=== PATIENT | female | born 2000 | race American Indian/Alaskan Native ===

== ENCOUNTER 2020-08-03 19:35 | Emergency (ER) | payer BC, MEDICAID ==
[2020-08-03] MEDS ORDERED: Sodium Chloride 0.9% 10 ML Syringe FLUSH PRN (20:05)
[2020-08-03] MEDS ORDERED: Ondansetron 4 MG/2 ML SDV IVPUSH STA (20:07)
[2020-08-03] MEDS ORDERED: Sodium Chloride 0.9% 1,000 ML IV SCH (20:15)
--- NOTE | 2020-08-03 20:55 | EDM.PDOC ---
ED HPI GENERAL MEDICAL PROBLEM - General Chief Complaint: Gastrointestinal Problem Stated Complaint: cough, N/V/D Time Seen by Provider: 08/03/20 19:40 Source of Information: Reports: Patient History Limitations: Reports: No Limitations - History of Present Illness INITIAL COMMENTS - FREE TEXT/NARRATIVE: Patient presented to the ED because of 1 day history of non-productive cough, malaise, N/V/D. There is no fever but has chills. Denies any urinary symptoms. - Related Data Allergies Allergy/AdvReac Type Severity Reaction Status Date / Time No Known Allergies Allergy Verified 08/03/20 19:54 Past Medical History - Past Health History Medical/Surgical History: Denies Medical/Surgical History Psychiatric History: Reports: ADHD Social & Family History - Tobacco Use Tobacco Use Status *Q: Current Every Day Tobacco User Years of Tobacco use: 1 Packs/Tins Daily: 0.5 - Alcohol Use Days Per Week of Alcohol Use: 1 Number of Drinks Per Day: 6 Total Drinks Per Week: 6 - Recreational Drug Use Recreational Drug Use: Yes Drug Use in Last 12 Months: Yes Recreational Drug Type: Reports: Marijuana/Hashish Recreational Drug Use Frequency: Weekly ED ROS GENERAL - Review of Systems Review Of Systems: See Below Constitutional: Reports: No Symptoms HEENT: Reports: No Symptoms Respiratory: Reports: Cough Cardiovascular: Reports: No Symptoms Endocrine: Reports: No Symptoms GI/Abdominal: Reports: Diarrhea, Nausea, Vomiting : Reports: No Symptoms Musculoskeletal: Reports: No Symptoms Skin: Reports: No Symptoms Neurological: Reports: No Symptoms Psychiatric: Reports: No Symptoms ED EXAM, GI/ABD - Physical Exam Exam: See Below Exam Limited By: No Limitations General Appearance: Alert, No Apparent Distress Ears: Normal External Exam, Normal Canal, Hearing Grossly Normal Nose: Normal Inspection, Normal Mucosa, No Blood Throat/Mouth: Normal Inspection, Normal Lips, Normal Teeth, Normal Gums Head: Atraumatic, Normocephalic Neck: Normal Inspection, Supple, Non-Tender, Full Range of Motion Respiratory/Chest: No Respiratory Distress, Lungs Clear, Normal Breath Sounds, No Accessory Muscle Use Cardiovascular: Normal Peripheral Pulses, Regular Rate, Rhythm, No Edema, No Gallop, No JVD, No Murmur GI/Abdominal Exam: Normal Bowel Sounds, Soft, Non-Tender, No Organomegaly, No Distention, No Abnormal Bruit Back Exam: Normal Inspection, Full Range of Motion Extremities: Normal Inspection, Normal Range of Motion, Non-Tender, No Pedal Edema, Normal Capillary Refill Neurological: Alert, Oriented, CN II-XII Intact, Normal Cognition, Normal Gait, Normal Reflexes, No Motor/Sensory Deficits Course - Vital Signs Text/Narrative:: Labs/CXR result was discussed with patient Last Recorded V/S: Last Vital Signs Temp 36.9 C 08/03/20 19:35 Pulse 123 H 08/03/20 19:35 Resp 16 08/03/20 19:35 BP 123/71 08/03/20 19:35 Pulse Ox - Orders/Labs/Meds Orders: Active Orders 24 hr Category Date Time Status Chest 1V Frontal [CR] Stat Exams 08/03/20 20:05 Taken CORONAVIRUS COVID-19 [facility] [MOLEC] Stat Lab 08/03/20 20:25 Ordered Sodium Chloride 0.9% [Normal Saline] 1,000 ml Med 08/03/20 20:15 Active IV ASDIRECTED Sodium Chloride 0.9% [Saline Flush] Med 08/03/20 20:05 Active 10 ml FLUSH ASDIRECTED PRN Saline Lock Insert [OM.PC] Routine Oth 08/03/20 20:05 Ordered Medication Orders Sodium Chloride (Normal Saline) 1,000 mls @ 999 mls/hr IV ASDIRECTED MARLIN Last Admin: 08/03/20 20:20 Dose: 999 mls/hr Documented by: SABINA Sodium Chloride (Sodium Chloride 0.9% 10 Ml Syringe) 10 ml FLUSH ASDIRECTED PRN PRN Reason: Keep Vein Open Last Admin: 08/03/20 20:20 Dose: 10 ml Documented by: SABINA Labs: Laboratory Tests 08/03/20 08/03/20 Range/Units 20:20 20:20 WBC 6.8 (3.0-10.3) x10-3/uL RBC 4.45 (3.60-5.20) x10(6)uL Hgb 14.3 (11.4-15.5) g/dL Hct 41.3 (34.2-48.2) % MCV 92.8 (76.7-100.5) fL MCH 32.1 (23.9-33.9) pg MCHC 34.5 (31.9-34.8) g/dL RDW 12.9 (12.3-16.5) % Plt Count 251 (151-488) x10(3)uL MPV 7.8 (7.1-12.4) fL Neut % (Auto) 61.2 (30.8-76.2) % Lymph % (Auto) 29.4 (18.4-52.1) % Twiggs % (Auto) 8.0 (4.4-15.7) % Eos % (Auto) 0.7 (0.6-8.1) % Baso % (Auto) 0.7 (0.2-1.5) % Neut # (Auto) 4.2 (1.5-6.3) x10-3/uL Lymph # (Auto) 2.0 (1.0-4.4) x10-3/uL Tw[place]gs # (Auto) 0.6 (0.3-1.0) x10-3/uL Eos # (Auto) 0.0 (0.0-0.8) x10-3/uL Baso # (Auto) 0.1 (0.0-0.1) x10-3/uL Sodium 140 (135-145) mmol/L Potassium 3.9 (3.5-5.3) mmol/L Chloride 104 (100-110) mmol/L Carbon Dioxide 25 (21-32) mmol/L BUN 18 (7-18) mg/dL Creatinine 0.9 (0.55-1.02) mg/dL Est Cr Clr Drug Dosing 91.79 mL/min Estimated GFR (MDRD) > 60 (>60) BUN/Creatinine Ratio 20.0 (9-20) Glucose 118 H (80-116) mg/dL Calcium 8.2 L (8.6-10.2) mg/dL Meds: Medications Generic Name Dose Route Start Last Admin Trade Name Freq PRN Reason Stop Dose Admin Sodium Chloride 1,000 mls @ 999 mls/hr 08/03/20 20:15 08/03/20 20:20 Normal Saline IV 999 mls/hr ASDIRECTED MARLIN Administration Sodium Chloride 10 ml 08/03/20 20:05 08/03/20 20:20 Sodium Chloride 0.9% 10 Ml Syringe FLUSH 10 ml ASDIRECTED PRN Administration Keep Vein Open Discontinued Medications Generic Name Dose Route Start Last Admin Trade Name Freq PRN Reason Stop Dose Admin Ondansetron HCl 4 mg 08/03/20 20:07 08/03/20 20:20 Ondansetron 4 Mg/2 Ml Sdv IVPUSH 08/03/20 20:08 4 mg NOW STA Administration Departure - Departure Time of Disposition: 21:30 Disposition: Home, Self-Care 01 Condition: Good Clinical Impression: URI (upper respiratory infection), Acute gastroenteritis - Discharge Information Instructions: Viral Respiratory Infection, [id number], Viral Gastroenteritis, Adult, [id number] Additional Instructions: Please read discharge instructions on viral URI and gastroenteritis Frequent hand washing Drink at least 2-3 L of water a day Take ibuprofen 800 mg with tylenol 1000 mg every 8 hours as needed for pain Follow up as needed Sepsis Event Note (ED) - Evaluation Sepsis Screening Result: No Definite Risk - Focused Exam Vital Signs: Vital Signs Temp Pulse Resp BP 08/03/20 19:35 36.9 C 123 H 16 123/71 - My Orders Last 24 Hours: My Active Orders 08/03/20 20:05 Chest 1V Frontal [CR] Stat Sodium Chloride 0.9% [Saline Flush] 10 ml FLUSH ASDIRECTED PRN Saline Lock Insert [OM.PC] Routine 08/03/20 20:15 Sodium Chloride 0.9% [Normal Saline] 1,000 ml IV ASDIRECTED 08/03/20 20:25 CORONAVIRUS COVID-19 [facility] [MOLEC] Stat - Assessment/Plan Last 24 Hours: My Active Orders 08/03/20 20:05 Chest 1V Frontal [CR] Stat Sodium Chloride 0.9% [Saline Flush] 10 ml FLUSH ASDIRECTED PRN Saline Lock Insert [OM.PC] Routine 08/03/20 20:15 Sodium Chloride 0.9% [Normal Saline] 1,000 ml IV ASDIRECTED 08/03/20 20:25 CORONAVIRUS COVID-19 [facility]E [MOLEC] Stat
--- NOTE | 2020-08-04 18:16 | CR ---
CHEST ONE VIEW [id number] INDICATION: Cough. An AP upright view of the chest was obtained 08/03/2020--no comparisons. The heart and mediastinum are unremarkable. A very minimal dextroconvex scoliosis is noted at the lower thoracic spine. No consolidation pneumonia or effusion was identified. However, there is basilar bronchial wall cuffing which may be on the basis of active peribronchial disease, and should be correlated clinically. Evidence of exogenous obesity is also noted. IMPRESSION: 1. Bronchial wall cuffing--correlate clinically as to the possibility of fibrosis versus active peribronchial disease. 2. Minimal scoliosis. 3. Exogenous obesity. MTDD
== END 2020-08-03 21:40 | disposition home or self-care (01) ==
LOC: FB.ED 19:35
DX: J06.9 Acute upper respiratory infection, unspecified (principal); K52.9 Noninfective gastroenteritis and colitis, unspecified; Z72.0 Tobacco use; Z20.822 Contact with and (suspected) exposure to COVID-19
CPT/HCPCS: 36415; 71045; 80048; 85025; 87635; 96374; 99284; J2405; J7030; U0002